=== PATIENT | male | born 1960 | race Two or more races ===

== ENCOUNTER → 2024-06-03 | Outpatient (CLI) | payer OTHER, MEDICAID, SELFPAY ==
--- NOTE | 2024-06-03 10:30 | XR_ITS ---
Examination: Abdomen sonogram, complete Date and time of exam: June 03, 2024 1032 hours INDICATIONS: Elevated liver function tests on laboratory examination performed one month ago. Technique: Multiple real-time grayscale transabdominal sonographic images of the abdomen have been obtained. Findings: Multiple gallstones Gallbladder wall 0.3 cm Common bile duct 0.3 cm Pancreatic head 2.4 cm Aorta not enlarged Liver 15.3 cm no focal liver lesions Normal hepatopedal portal venous flow Patent IVC Right kidney 11.7 cm cortex 1.9 cm Left kidney 11.3 cm cortex 1.8 cm Mild renal parenchymal scar formation Spleen 9.5 cm IMPRESSION: Cholelithiasis, negative for cholecystitis Fatty liver
== END | disposition home or self-care (01) ==
PROVIDERS: PCP Nurse Practitioner Primary Care; Referring Provider Nurse Practitioner Primary Care; Visit Provider Nurse Practitioner Primary Care
DX: K80.20 Calculus of gallbladder without cholecystitis without obstruction (principal); K76.0 Fatty (change of) liver, not elsewhere classified
CPT/HCPCS: 76700

== ENCOUNTER → 2024-11-10 | Outpatient (CLI) | payer OTHER, MEDICAID, SELFPAY ==
--- NOTE | 2024-11-10 | XR_ITS ---
Examination: Shoulder,right, 3 views Technique: Shoulder AP internal rotation, AP external rotation, Y view shoulder, 3 views Exam date and time :November 10 thousand 25 1237 hours INDICATIONS: Right shoulder pain one month. FINDINGS: Moderate narrowing glenohumeral joint No fracture or shoulder dislocation IMPRESSION: Moderate narrowing glenohumeral joint
--- NOTE | 2024-11-10 | XR_ITS ---
Examination: Cervical spine 3 views Technique one AP lateral coned AP odontoid cervical spine 3 views Date and time: November 10, 2024, 1238 hours INDICATIONS: Neck pain one year radiating to the right shoulder. FINDINGS: Reversal normal cervical lordosis Minimal retrodisplacement C4 relative to C3 No cervical fracture Incomplete visualization C7 Advanced degenerative disc disease C3-C4, C4-C5, C5-C6, C6-C7 IMPRESSION: Diffuse advanced cervical degenerative disc disease, consider oblique films follow-up to assess for neural foraminal stenosis
== END | disposition home or self-care (01) ==
PROVIDERS: PCP Physician Assistant; Referring Provider Student in an Organized Health Care Education/Training Program; Visit Provider Student in an Organized Health Care Education/Training Program
DX: M25.811 Other specified joint disorders, right shoulder (principal); M50.31 Other cervical disc degeneration, high cervical region; M48.02 Spinal stenosis, cervical region
CPT/HCPCS: 72040; 73030